=== PATIENT | female | born 1990 | race African-American/Black ===

== ENCOUNTER 2020-04-03 14:48 | Emergency (ER) | payer MEDICAID ==
[~2020-04-03] VITALS: Ht 170.2 cm; Wt 113.6 kg
[2020-04-03] MEDS ORDERED: EPINEPHrine 1:1,000 [1 MG/ML] AMP ONE (14:55)
[2020-04-03] MEDS ORDERED: AMLO-257 PO (14:57)
[2020-04-03] MEDS ORDERED: MethylPREDNISolone SOD SUCC 125 MG/2 ML VIAL ONE (14:58)
[2020-04-03] MEDS ORDERED: ALBU8HFA IH (14:58)
[2020-04-03] MEDS ORDERED: SODIUM CHLORIDE 0.9% 1,000 ML ONE (14:58)
[2020-04-03] MEDS ORDERED: FAMOTIDINE 10 MG/ML 2 ML VIAL ONE (14:58)
[2020-04-03] MEDS ORDERED: DiphenhydrAMINE HCL 50 MG/ML VIAL ONE (14:58)
[2020-04-03] MEDS ORDERED: FAMOTIDINE 10 MG/ML 2 ML VIAL IVP ONE (15:00)
[2020-04-03] MEDS ORDERED: DiphenhydrAMINE HCL 50 MG/ML VIAL IVP ONE (15:00)
[2020-04-03] MEDS ORDERED: MethylPREDNISolone SOD SUCC 125 MG/2 ML VIAL IVP ONE (15:00)
[2020-04-03] MEDS ORDERED: EPINEPHrine 1:1,000 [1 MG/ML] AMP IM ONE ×2 (15:00→15:30)
[2020-04-03 15:20] LABS: BASOPHILS % (AUTO) 0.3 % (0.0-2.0); HEMATOCRIT 39.2 % (36-46); HEMOGLOBIN 12.6 g/dL (12.0-16.0); LYMPHOCYTES # (AUTO) 4.5 K/uL (1.0-4.8); LYMPHOCYTES % (AUTO) 39.6 % (22.0-44.0); MEAN CORPUSCULAR HGB CONC 32.1 G/dL (31.0-37.0); MEAN CORPUSCULAR VOLUME 87 fL (80-100); MONOCYTES # (AUTO) 0.8 K/uL (0.1-1.0); MONOCYTES % (AUTO) 6.7 % (2.0-9.0); NEUTROPHILS # (AUTO) 5.8 K/uL (1.8-7.7); NEUTROPHILS % (AUTO) 51.4 % (40.0-70.0); PLATELET COUNT (AUTO) 217 K/uL (150-450); RED CELL DISTRIBUTION WIDTH 14.4 % (11.5-14.5)
[2020-04-03 15:38] LABS: B-TYPE NATRIURETIC PEPTIDE 25 pg/mL (0-100)
[2020-04-03 15:39] LABS: CARBON DIOXIDE 23 mmol/L (22-29); CHLORIDE 104 mmol/L (98-107); POTASSIUM 3.1 mmol/L (3.5-5.1); SODIUM SERUM 140 mmol/L (136-145)
[2020-04-03 15:40] LABS: ANION GAP 13 mmol/L (8-16); CALCIUM, TOTAL 8.6 mg/dL (8.8-10.5); CREATININE 1.13 mg/dL (0.60-1.30); GLOMERULAR FILTR. RATE CALC > 60 mL/min (>60); GLUCOSE,RANDOM 129 mg/dL (70-110); UREA NITROGEN, BLOOD 13 mg/dL (7-18)
[2020-04-03 15:44] LABS: ALANINE AMINOTRANSFERASE 20 U/L (12-78); ALBUMIN 3.6 g/dL (3.4-5.0); ALKALINE PHOSPHATASE 86 U/L (46-116); ASPARTATE AMINOTRANSFERASE 12 U/L (15-37); BILIRUBIN,TOTAL 0.3 mg/dL (0.1-1.0); CREATINE KINASE, TOTAL ONLY 73 U/L (26-192); HCG,QUANTITATIVE < 1 mIU/mL (0-6)
[2020-04-03 15:48] LABS: INR 0.9 (0.9-1.1); PROTHROMBIN TIME 9.9 SEC (9.4-11.6)
[2020-04-03] MEDS ORDERED: EPINEPHrine 2 MG in DEXTROSE 5%-WATER 248 ML IV PRN (16:00)
[2020-04-03] MEDS ORDERED: IOVERSOL 350 MG/ML 100 ML VIAL ONE (16:11)
[2020-04-03] MEDS ORDERED: SODIUM CHLORIDE 0.9% 100 ML ONE (16:11)
[2020-04-03] MEDS ORDERED: POTASSIUM CHLORIDE 20 MEQ ER TABLET PO ONE (16:15)
[2020-04-03] MEDS ORDERED: KETOROLAC TROMETHAMINE 30 MG/ML VIAL IVP ONE (17:15)
[2020-04-03 17:30] VITALS: BP 142/80
[2020-04-03] MEDS ORDERED: ONDANSETRON HCL 4 MG/2 ML VIAL ONE (18:30)
== END 2020-04-03 18:25 | disposition short-term general hospital (02) ==
LOC: EMS 14:52
DX: T78.2XXA Anaphylactic shock, unspecified, initial encounter (principal); J45.909 Unspecified asthma, uncomplicated; I10 Essential (primary) hypertension; F17.210 Nicotine dependence, cigarettes, uncomplicated; Z91.030 Bee allergy status; Y92.89 Other specified places as the place of occurrence of the external cause
CPT/HCPCS: 36415; 70491; 71045; 80053; 82550; 83880; 84484; 84702; 85025; 85610; 85730; 93005; 96365; 96372; 96375; 99291; J0171 ×2; J1200; J1885; J2405; J2930; J3490; J7030; J7050; J7060; Q9967